=== PATIENT | female | born 1985 | race Hispanic/Latino ===

== ENCOUNTER → 2018-12-27 13:16 | Outpatient (CLI) | payer SELFPAY | PROVIDERS: Visit Provider Physician Assistant Medical | DX: N64.4 Mastodynia (principal); Z53.9 Procedure and treatment not carried out, unspecified reason ==

== ENCOUNTER → 2019-01-21 09:45 | Outpatient (CLI) | payer SELFPAY ==
--- NOTE | 2019-01-21 | DI.MG.S_ITS ---
BILATERAL DIGITAL DIAGNOSTIC MAMMOGRAM 3D/2D: 01/21/2019 CLINICAL: Breast pain. Baseline. Baseline exam. No prior exams were available for comparison. The tissue of both breasts is heterogeneously dense. This may lower the sensitivity of mammography. No significant masses, calcifications, or other findings are seen in either breast. No abnormality to correspond to diffuse breast pain. IMPRESSION: NEGATIVE There is no mammographic evidence of malignancy. Recommend continue clinical management of symptoms and monitoring for significant change. The patient should return for further evaluation if symptoms become focal or a palpable abnormality is identified. Return to mammogram screening schedule is recommended. This exam was interpreted at Station ID: [id number]. NOTE: For mammograms, a report in lay terms will be sent to the patient. Approximately 15% of breast malignancies will not be visualized mammographically. In the management of a palpable breast mass, a negative mammogram must not discourage biopsy of a clinically suspicious lesion. Electronically Signed By: Chris Agudelo M.D. [facility] [place]/:01/21/2019 10:56:59 letter sent: Normal Exam ACR BI-RADS Category 1: Negative [id number]
== END ==
PROVIDERS: Visit Provider Physician Assistant Medical
DX: N64.4 Mastodynia (principal)
CPT/HCPCS: 77066; G0279

== ENCOUNTER → 2020-05-25 16:21 | Outpatient (CLI) | payer SELFPAY ==
[2020-05-25 16:46] LABS: Add Manual Diff / Slide Review NO; Basophils Absolute Auto 100 /uL (0-100); Basophils Percent Auto 0.6 % (0-2); Eosinophils Absolute Auto 100 /uL (0-450); Eosinophils Percent Auto 1.4 % (2-4); Hemoglobin 13.6 g/dL (12.0-16.0); Lymphocytes Absolute Auto 3100 /uL (1100-4500); Mean Corpuscular HGB Conc 34.1 % (30-36); Mean Corpuscular Hemoglobin 31.7 PG (26-34); Monocytes Absolute Auto 700 /uL (0-900); Monocytes Percent Auto 7.9 % (3-14); Neutrophils Absolute Auto 4800 /uL (1500-7000); Neutrophils Percent Auto 55.1 % (50-75); Platelet Count 290 X10^3/uL (150-400); Red Blood Cell Count 4.31 X10^6/uL (4.0-5.2); Red Cell Distribution Width 12.6 % (11.6-14.8); White Blood Cell Count 8.8 X10^3/uL (4.5-11.0)
[2020-05-25 17:12] LABS: Alanine Aminotransferase 17 IU/L (<35); Albumin 4.3 g/dL (3.5-5.0); Albumin Globulin Ratio 1.3 (1.0-2.8); Alkaline Phosphatase 48 U/L (38-126); Aspartate Aminotransferase 25 IU/L (14-36); BUN Creatinine Ratio 22.6 (6-22); Bilirubin Total 0.5 mg/dL (0.2-1.3); Blood Urea Nitrogen 14 mg/dL (7-17); Carbon Dioxide 28 mmol/L (22-32); Chloride 105 mmol/L (98-107); Estimated Glomerular Filt Rate > 60.0 mL/min (>60); Globulin 3.4 g/dL (1.7-4.1); Glucose 92 mg/dL (70-100); HEMOLYSIS < 15 (0-50); Sodium 137 mmol/L (137-145); Total Protein 7.7 g/dL (6.3-8.2)
[2020-05-25 17:21] LABS: Total Iron Binding Capacity 363 ug/dL (265-497)
[2020-05-25 17:27] LABS: Free T4, Direct Thyroxine 1.04 ng/dL (0.78-2.19)
[2020-05-25 17:42] LABS: Thyroid Stimulating Hormone 1.54 uIU/mL (0.47-4.68)
[2020-05-25 17:47] LABS: Ferritin 16 ng/mL (6-137)
== END ==
PROVIDERS: PCP Registered Nurse; Referring Provider Registered Nurse; Visit Provider Registered Nurse
DX: L65.9 Nonscarring hair loss, unspecified (principal); N92.0 Excessive and frequent menstruation with regular cycle
CPT/HCPCS: 36415; 80053; 82728; 83550; 84439; 84443; 85025

== ENCOUNTER → 2020-10-15 14:43 | Outpatient (CLI) | payer SELFPAY ==
--- NOTE | 2020-10-15 14:58 | DI.US.S_ITS ---
PROCEDURE: US PELVIC COMPLETE INDICATIONS: heavy vaginal bleedings with clots TECHNIQUE: Real-time scanning was performed of the pelvic organs, with image documentation. Additional endovaginal scanning was necessary due to incomplete visualization of the adnexal and endometrial structures by transabdominal scanning. COMPARISON: None. FINDINGS: Uterus: Uterus is bulky in size at 8.5 x 5.8 x 8.4 cm and mildly heterogeneous. The endometrium measures 6.0 mm in combined thickness. Ovaries: Normal ovaries bilaterally measuring 3.1 x 1.5 x 2.5 cm on the right and 3.9 x 1.5 x 2.2 cm on the left. Other: No pathologic free abdominal or pelvic fluid. IMPRESSION: 1. Mildly bulky appearance of the uterus with heterogeneity of the myometrium which may be related to multiple small uterine fibroids. 2. Normal appearance of the ovaries. Dictated by: Oj KRAMER Interpreted: Vera Thomas MD on 10/15/2020 at 17:01 Transcribed by: RICHMOND on 10/15/2020 at 17:03 Approved by: Vera Thomas M.D. on 10/16/2020 at 16:20
== END ==
PROVIDERS: PCP Registered Nurse; Referring Provider Registered Nurse; Visit Provider Registered Nurse
DX: N93.9 Abnormal uterine and vaginal bleeding, unspecified (principal)
CPT/HCPCS: 76830; 76856

== ENCOUNTER → 2022-10-14 15:51 | Outpatient (CLI) | payer OTHER, SELFPAY ==
[2022-10-16 18:07] LABS: DNA (DS) Antibody 5 IU/mL (0-9); SS A Ro Sjogrens Antibody 5.8 AI (0.0-0.9); SS B La Sjogrens Antibody 0.3 AI (0.0-0.9)
[2022-10-17 19:44] LABS: ANA Screen, IFA Negative (.)
== END ==
PROVIDERS: PCP Family Medicine; Referring Provider Family Medicine; Visit Provider Family Medicine
DX: M32.9 Systemic lupus erythematosus, unspecified (principal); M35.00 Sjogren syndrome, unspecified; R76.8 Other specified abnormal immunological findings in serum
CPT/HCPCS: 36415; 86038; 86225; 86235

== ENCOUNTER → 2025-05-03 11:38 | Outpatient (CLI) | payer OTHER, SELFPAY ==
[2025-05-03 12:14] LABS: Hematocrit 35.7 % (36-46); Hemoglobin 12.0 g/dL (12.0-16.0); Mean Corpuscular HGB Conc 33.7 % (30-36); Mean Corpuscular Hemoglobin 29.3 PG (26-34); Mean Corpuscular Volume 86.9 fL (80-100); Platelet Count 294 X10^3/uL (150-400)
[2025-05-03 12:42] LABS: Alanine Aminotransferase 10 IU/L (<35); Albumin 4.1 g/dL (3.5-5.0); Albumin Globulin Ratio 1.3 (1.0-2.8); Alkaline Phosphatase 39 U/L (38-126); Blood Urea Nitrogen 10 mg/dL (7-17); Calcium 9.1 mg/dL (8.4-10.2); Carbon Dioxide 24 mmol/L (22-32); Chloride 108 mmol/L (98-107); Cholesterol 178 mg/dL (140-199); Estimated Glomerular Filt Rate > 60 mL/min (>60); Globulin 3.1 g/dL (1.7-4.1); Glucose 90 mg/dL (70-99); HDL Cholesterol 44 mg/dL (40-60); HEMOLYSIS < 15 (0-50); Potassium 4.7 mmol/L (3.4-5.1); Sodium 139 mmol/L (137-145); Total Protein 7.2 g/dL (6.3-8.2); Triglycerides 115 mg/dL (35-150)
[2025-05-04 08:11] LABS: Insulin Level Total 3.5 uIU/mL (2.6-24.9)
[2025-05-04 08:36] LABS: CRP, High Sensitivity 0.81 mg/L (0.00-3.00)
== END ==
PROVIDERS: PCP Family Medicine; Referring Provider Family Medicine; Visit Provider Family Medicine
DX: Z00.00 Encounter for general adult medical examination without abnormal findings (principal); Z01.419 Encounter for gynecological examination (general) (routine) without abnormal findings; M35.00 Sjogren syndrome, unspecified; N92.0 Excessive and frequent menstruation with regular cycle; R76.89 Other specified abnormal immunological findings in serum
CPT/HCPCS: 36415; 80053; 80061; 83525; 85027; 86140